=== PATIENT | female | born 1975 | race Caucasian/White ===

== ENCOUNTER 2017-07-17 07:29 | Day surgery (SDC) | payer OTHER ==
[~2017-07-17 07:29] MED LIST: BELPTAB PO; CODACE30 PO; HYDACE5 PO; HYDCHL25 PO; IBUP200; MAGNESIUM CITR100 MG PO; MECL25 PO; METDOP250 PO; OXYACE5T PO; PANT40 PO; PREN-16 PO; PROBIOTIC FORM1 EAC1 PO; PROG100 PO; PROM25 PO; RXHYDACE PO; SUMA5NI
== END 2017-07-17 22:48 | disposition home or self-care (01) ==
LOC: MHTC 07:29
PROC: 3E033TZ Introduction of Destructive Agent into Peripheral Vein, Percutaneous Approach (ICD-10-PCS; principal; 2017-07-17)
DX: I83.812 Varicose veins of left lower extremity with pain (principal); I83.892 Varicose veins of left lower extremity with other complications; I87.2 Venous insufficiency (chronic) (peripheral); I10 Essential (primary) hypertension; E66.01 Morbid (severe) obesity due to excess calories
CPT/HCPCS: 36465; 36466; 99152; J2250; J3010

== ENCOUNTER → 2018-06-17 | Outpatient (CLI) | payer OTHER ==
[2018-06-18 08:12] LABS: RUBEOLA ANTIBODIES, IGG >300.0 AU/mL (Immune >29.9)
[2018-06-18 10:06] LABS: MUMPS ANTIBODIES, IGG 9.7 AU/mL (Immune >10.9)
== END | disposition home or self-care (01) ==
LOC: LAB UCHC 10:13 → LAB SHORT 10:13
PROVIDERS: Family Medicine
DX: Z23 Encounter for immunization (principal)
CPT/HCPCS: 86735; 86762; 86765

== ENCOUNTER 2018-12-09 08:04 | Day surgery (SDC) | payer OTHER ==
[~2018-12-09] VITALS: Ht 175.3 cm; Wt 120.3 kg
[~2018-12-09 08:04] MED LIST changes: +OMEPRAZOLE20 MG PO
--- NOTE | 2018-12-09 09:09 | NUR ---
12/09/18 0909 Carrie Hall 1 IV MISS IN RW BY CINDI VALVE 1 GOOD IV IN RAC BY CINDI PT TOW
== END 2018-12-09 09:47 | disposition home or self-care (01) ==
LOC: ORSCSDS 08:04
PROVIDERS: Internal Medicine Gastroenterology
PROC: 0DJD8ZZ Inspection of Lower Intestinal Tract, Via Natural or Artificial Opening Endoscopic (ICD-10-PCS; principal; 2018-12-09 09:15)
DX: Z12.11 Encounter for screening for malignant neoplasm of colon (principal); K57.30 Diverticulosis of large intestine without perforation or abscess without bleeding; K64.8 Other hemorrhoids; E88.81 Metabolic syndrome and other insulin resistance; Z98.84 Bariatric surgery status; I10 Essential (primary) hypertension; Z80.0 Family history of malignant neoplasm of digestive organs; Z83.71 Family history of colonic polyps; G47.33 Obstructive sleep apnea (adult) (pediatric); E66.01 Morbid (severe) obesity due to excess calories; Z68.39 Body mass index [BMI] 39.0-39.9, adult
CPT/HCPCS: 82947; J2704; J7120

== ENCOUNTER → 2022-12-06 | Outpatient (CLI) | payer BC ==
[~2022-12-06] MED LIST changes: +FAMO10 PO; +Lisinopril-Hct1 EAC4 PO; +TIZA4 PO
[2022-12-08 16:11] LABS: HPV 16 Negative (Negative); HPV 18 Negative (Negative); HPV OTHER HR TYPES Negative (Negative)
== END ==
LOC: LAB SHORT 17:30 → LAB 17:30
PROVIDERS: Advanced Practice Midwife
DX: Z01.419 Encounter for gynecological examination (general) (routine) without abnormal findings (principal)
CPT/HCPCS: 87624; G0145